=== PATIENT | female | born 1990 | race Asian ===

== ENCOUNTER 2024-05-20 06:56 | Outpatient (REF) | payer OTHER, SELFPAY ==
--- NOTE | ~2024-05-20 | US_ITS ---
EXAMINATION: US PELVIS CLINICAL INFORMATION: Worsening menstrual cramps COMPARISON: None. TECHNIQUE: Transcutaneous pelvic ultrasound. Transvaginal scanning was not performed FINDINGS: The uterus measures 7.0 x 2.7 x 4.5 cm. The uterus is anteverted. The cervix measures approximately 3.0 cm. No suspicious abnormality in the region of the cervix or expected region of the vagina. No suspicious abnormalities in the region of the cervix. The uterine contour is smooth. The endometrium measures 0.2 cm. No focal endometrial mass or thickening No focal abnormalities within the myometrium. The right ovary measures approximately 3.4 x 2.1 x 3.2 cm. The calculated right ovarian volume is approximately 9 mL. No suspicious right adnexal mass or collection The left ovary measures 2.8 x 1.9 x 2.0 cm. The calculated left ovarian volume is approximately 6 mL. No suspicious left adnexal mass or collection No significant free pelvic fluid. US/US pelvic complete IMPRESSION: Transcutaneous scanning does not demonstrate any cause for pain. Specifically the uterus and ovaries appear within normal limits Electronically signed by: Tyler Davenport MD 05/20/2024 06:59 PM EDT
== END 2024-05-20 06:57 | disposition home or self-care (01) ==
LOC: HO.UMASIMG 06:56
PROVIDERS: Visit Provider Nurse Practitioner Women's Health
DX: N94.6 Dysmenorrhea, unspecified (principal)
CPT/HCPCS: 76856